=== PATIENT | female | born 1980 | race African-American/Black ===

== ENCOUNTER 2020-01-07 22:18 | Emergency (ER) | payer MEDICAID ==
[~2020-01-07] VITALS: Ht 160 cm; Wt 93.0 kg
[2020-01-07 22:20] VITALS: BP_SYST 160
--- NOTE | 2020-01-07 23:05 | NUR ---
ER Dr. Frankel at bedside examining patient.
--- NOTE | 2020-01-07 23:05 | NUR ---
Patient to ER bed h1 for evaluation. Side rails up.
--- NOTE | 2020-01-07 23:09 | NUR ---
Pt brought in by self. Pt awake, alert, oriented x4. Pt states that yesterday she fell into the grass and she now has splinters in R hand and L hip from fall. Pt denies other musculoskeletal pain at this time. Pt denies chest pain, nausea, vomiting, diarrhea, shortness of breath. Pt denies any other medical complaint at this time. Pt vss, resting in ED bed
--- NOTE | 2020-01-07 23:12 | NUR ---
bedside performing extraction of splinters
--- NOTE | 2020-01-07 23:30 | NUR ---
Pt taken to radiology via wheelchair
--- NOTE | 2020-01-07 23:42 | NUR ---
Pt returned from radiology
[2020-01-07 23:51] VITALS: BP_SYST 150
--- NOTE | 2020-01-07 23:51 | NUR ---
Patient given written and verbal discharge instructions and verbalizes understanding. ER MD Frankel discussed with patient the results and treatment provided. Patient in stable condition. ID arm band removed. Rx of Naprosyn given. Patient educated on pain management and to follow up with PMD. Pain Scale 0. Opportunity for questions provided and answered. Medication side effect fact sheet provided.
== END 2020-01-07 23:51 | disposition home or self-care (01) ==
LOC: SED 22:18
DX: S73.101A Unspecified sprain of right hip, initial encounter (principal); S60.552A Superficial foreign body of left hand, initial encounter; S60.551A Superficial foreign body of right hand, initial encounter; S80.01XA Contusion of right knee, initial encounter; W18.39XA Other fall on same level, initial encounter; Y93.89 Activity, other specified; Y92.89 Other specified places as the place of occurrence of the external cause; Y99.8 Other external cause status
CPT/HCPCS: 73502; 73560-TC; 99284